=== PATIENT | male | born 1960 | race Caucasian/White ===

== ENCOUNTER 2017-08-11 06:11 | Outpatient (CLI) | payer OTHER ==
[2017-08-11] MEDS ORDERED: IOPAMIDOL-300 50 ML VIAL ONE (06:30)
[2017-08-11] MEDS ORDERED: IOPAMIDOL-300 100 ML VIAL ONE (06:30)
[2017-08-11] MEDS ORDERED: IOPAMIDOL-300 100 ML VIAL IVP ONE (09:52)
[2017-08-11] MEDS ORDERED: IOPAMIDOL-300 50 ML VIAL PO ONE (09:52)
--- NOTE | 2017-08-12 07:05 | CT Report ---
Procedure Date: 08/11/2017 Accession Number: [id number] / [id number] Procedure: CT - Abdomen/Pelvis W/ CPT Code: FULL RESULT: EXAM: CT ABDOMEN AND PELVIS EXAM DATE: 08/11/2017 07:43 AM. CLINICAL HISTORY: Rectal pain with defecation. COMPARISONS: None. TECHNIQUE: Routine helical CT imaging was performed through the abdomen and pelvis. IV contrast: ISOVUE 300 100 mL. Enteric contrast: Positive. Reconstructions: Coronal and sagittal. In accordance with CT protocol optimization, one or more of the following dose reduction techniques were utilized for this exam: automated exposure control, adjustment of mA and/or KV based on patient size, or use of iterative reconstructive technique. FINDINGS: Lung Bases: Lung bases are clear. Heart size upper normal. Liver: Fatty liver. No hepatic lesions. Patent portal vein. Gallbladder/Bile Ducts: Unremarkable. Spleen: Normal. Pancreas: Normal. Adrenal Glands: 16 mm left adrenal nodule is present, indeterminate. Kidneys: Kidneys enhance symmetrically. No hydronephrosis. No nephrolithiasis. No ureteral dilatation or ureteral calculi. Peritoneal Cavity/Bowel: Stomach is mildly to moderately distended and unremarkable. No small bowel wall thickening. No evidence for obstruction. No free air. Small volume of stool in the colon. Diverticula are seen largely in the distal colon. No evidence of diverticulitis. No enlarged retroperitoneal or mesenteric lymph nodes. Surgical clips are seen adjacent to the duodenum, along the retroperitoneum, along the IVC and aorta and along the right renal hilum and along the right iliac artery. The appendix is well visualized and normal. Pelvic Organs: The urinary bladder is mildly distended and unremarkable. Fatty left inguinal hernia. Changes appear to be seen from right orchiectomy. There may be a prosthesis in the right scrotum. No perirectal fluid collections or definitive evidence for fistula. No significant focal rectal or anal thickening noted. No perianal fluid collections. Vasculature: Vascular calcifications. Mesenteric vasculature is patent. No aneurysm. No dissection. Bones: Degenerative changes of the lower thoracic and lumbar spine. Degenerative changes of both hip joints. No acute osseous abnormalities. No osseous lesions. Other: None. IMPRESSION: 1. Colonic diverticulosis. No diverticulitis. No bowel obstruction. No evidence of perianal or perirectal fistula or fluid collection or focal thickening. 2. Normal appendix. 3. No nephrolithiasis. No hydronephrosis. 4. Fatty liver. 5. Retroperitoneal lymph node dissection. Status post right orchiectomy. RADIA
== END 2017-08-11 06:12 | disposition home or self-care (01) ==
LOC: DI 06:11
PROVIDERS: ATTEND Internal Medicine
DX: K57.30 Diverticulosis of large intestine without perforation or abscess without bleeding (principal); K76.0 Fatty (change of) liver, not elsewhere classified; Z90.79 Acquired absence of other genital organ(s)
CPT/HCPCS: 74177; Q9967

== ENCOUNTER 2018-05-23 17:29 | Emergency (ER) | payer OTHER ==
--- NOTE | 2018-05-23 17:40 | ED Physician Documentation ---
History of Present Illness - Stated complaint Stated Complaint: R HAND LAC - Chief complaint Chief Complaint: Laceration - History obtained from History obtained from: Patient - History of Present Illness Timing: Prior to arrival - Additonal information Additional information: Patient is a previously healthy, right-handed 57-year-old male presenting with large laceration to the dorsum of his right hand after excellently tripping near his truck and catching it on a piece of metal. Patient denies fall, striking of head, or other injury. Patient reports mild pain and bleeding, but denies significant change in sensation, strength, range of motion. Tetanus current. No other improving or worsening factors to his symptoms noted. Review of Systems Skin: reports: Laceration (s) Musculoskeletal: reports: Extremity pain PD PAST MEDICAL HISTORY - Past Medical History Psych: Depression - Allergies Allergies/Adverse Reactions: Allergies Allergy/AdvReac Type Severity Reaction Status Date / Time aspirin Allergy Anaphylaxis Verified 05/23/18 17:33 niacin Allergy Anaphylaxis Verified 05/23/18 17:33 Penicillins Allergy Anaphylaxis Verified 05/23/18 17:33 Sulfa (Sulfonamide Allergy Anaphylaxis Verified 05/23/18 17:33 Antibiotics) PD ED PE NORMAL - General General: Alert and oriented X 3, No acute distress, Well developed/nourished - HEENT HEENT: Atraumatic, Moist mucous membranes - Cardiac Cardiac: Strong equal pulses (Cap refill brisk) - Respiratory Respiratory: No respiratory distress - Derm Derm: Normal color, Warm and dry, Other (Approximately 12 cm irregular superficial laceration to dorsum of right hand directly below index finger and extending into webspace of thumb and index finger. No signs of infection, retained foreign body, or other damage to underlying structures.) - Extremities Extremities: No deformity, No tenderness to palpate, Normal ROM s pain - Neuro Neuro: Alert and oriented X 3, No motor deficit, No sensory deficit - Psych Psych: Normal mood, Normal affect Results - Vitals Vitals: Vital Signs - 24 hr 05/23/18 05/23/18 17:33 20:03 Temperature 36.6 C 36.4 C L Heart Rate 72 68 Respiratory 16 14 Rate Blood Pressure 125/74 128/74 O2 Saturation 95 97 Oxygen O2 Source Room air Procedures - Laceration (location) Hand right Length in cm: 12 Wound type: Curved, Irregular Neurovascular status: Sensory intact, Motor intact, Vascular intact Tendon involvement: Tendon intact Anesthesia: LET, Lidocaine 1% with epi Wound Preparation: Irrigated copiously NS Skin layer closure: Nylon, Sutures - enter # (twelve 4-0) Other: Patient tolerated well, No complications, Neurovascular intact, Dressing applied, Tetanus UTD Complexity: Simple PD MEDICAL DECISION MAKING - ED course Complexity details: re-evaluated patient, considered differential, d/w patient, d/w family ED course: Most concerning for superficial laceration that is otherwise uncomplicated. Have low suspicion for dislocation, fracture, muscular skeletal injury at this time, particularly given mechanism and physical exam findings. No signs of retained foreign body, tendon involvement or other underlying damage.No signs of infection. Wound anesthetized, appropriately cleaned, and repaired in ED without issue. Advised patient appropriate wound care, timing of suture removal, other supportive cares, return precautions. Patient voiced understanding and is comfortable with discharge plan. Departure - Departure Disposition: 01 Home, Self Care Clinical Impression: Laceration Condition: Good Instructions: ED Laceration All, ED Laceration Hand Follow-Up: your,doctor [Other] - Within 3 Days Comments: Please keep wounds clean and dry, using running water and soap only to clean. Apply bacitracin or Neosporin 1-2 times daily as needed. Please return to ED, urgent care or your physician in 10-14 days for suture removal. Please return earlier if experience reopening of wound, infection of wound, or other concerns.
[2018-05-23] MEDS: LIDOCAINE-EPINEPH-TETRACAINE 3 ML SYRINGE TOP STA (18:04)
[2018-05-23 20:04] VITALS: BP 128/74
== END 2018-05-23 20:19 | disposition home or self-care (01) ==
LOC: ED 17:29
DX: S61.411A Laceration without foreign body of right hand, initial encounter (principal); W01.118A Fall on same level from slipping, tripping and stumbling with subsequent striking against other sharp object, initial encounter
CPT/HCPCS: 12004; 99282; 99283

== ENCOUNTER 2018-08-09 08:00 | Outpatient (CLI) | payer OTHER ==
[2018-08-09 12:27] LABS: BASOPHILS % (AUTO) 0.6 %; EOSINOPHILS # (AUTO) 0.2 10^3/uL (0.0-0.7); EOSINOPHILS % (AUTO) 2.1 %; HGB - HEMOGLOBIN 15.1 g/dL (14.0-18.0); LYMPHOCYTES # (AUTO) 2.1 10^3/uL (1.5-3.5); LYMPHOCYTES % (AUTO) 29.4 %; MEAN CORPUSCULAR HEMOGLOBIN 30.4 pg (27.0-31.0); MEAN CORPUSCULAR HGB CONC 32.5 g/dL (32.0-36.0); MEAN CORPUSCULAR VOLUME 93.8 fL (80.0-94.0); MEAN PLATELET VOLUME 10.4 fL (7.4-11.4); MONOCYTES # (AUTO) 0.5 10^3/uL (0.0-1.0); MONOCYTES % (AUTO) 6.8 %; NEUTROPHILS # (AUTO) 4.3 10^3/uL (1.5-6.6); PLT - PLATELET COUNT 197 10^3/uL (130-450); RED BLOOD COUNT 4.96 10^6/uL (4.70-6.10); RED CELL DISTRIBUTION WIDTH 14.5 % (12.0-15.0)
[2018-08-09 12:52] LABS: PSA SCREEN (Z12.5) 4.11 ng/mL (0.000-2.000); THYROID STIMULATING HORMONE 3.4 uIU/mL (0.34-5.60)
[2018-08-09 12:55] LABS: ALBUMIN 4.2 g/dL (3.2-5.5); ALBUMIN/GLOBULIN RATIO 1.7 (1.0-2.2); ALKALINE PHOSPHATASE 48 IU/L (42-121); ALT ALANINE AMINOTRANSFERASE 34 IU/L (10-60); AST ASPARTATE AMINOTRANSFERASE 23 IU/L (10-42); BUN - BLOOD UREA NITROGEN 19 mg/dL (6-20); CALCIUM 9.1 mg/dL (8.5-10.3); CARBON DIOXIDE - CO2 25 mmol/L (21-32); CHLORIDE 108 mmol/L (101-111); CHOL/HDL RATIO 5.4 (<5.0); CHOLESTEROL 163 mg/dL; CREATININE 1.1 mg/dL (0.6-1.2); GFR - MDRD 69 (>89); GLUCOSE 97 mg/dL (70-100); HDL CHOLESTEROL 30 mg/dL; SODIUM 141 mmol/L (135-145); TOTAL PROTEIN 6.7 g/dL (6.7-8.2); URIC ACID 9.8 mg/dL (2.6-7.2)
[2018-08-09 13:21] LABS: LDL CHOLESTEROL,DIRECT 68 mg/dL; LDLD/HDL RATIO 2.3 (<3.6)
== END 2018-08-09 23:59 | disposition home or self-care (01) ==
LOC: LAB.N 08:00
PROVIDERS: ATTEND Internal Medicine
DX: I10 Essential (primary) hypertension (principal); Z79.899 Other long term (current) drug therapy; E78.1 Pure hyperglyceridemia; R58 Hemorrhage, not elsewhere classified; Z12.5 Encounter for screening for malignant neoplasm of prostate; D40.10 Neoplasm of uncertain behavior of unspecified testis; M10.9 Gout, unspecified; E55.9 Vitamin D deficiency, unspecified
CPT/HCPCS: 36415; 80053; 80061; 82105; 82306; 82607; 83721; 84153; 84403; 84443; 84550; 84702; 84703; 85025

== ENCOUNTER 2019-01-05 08:00 | Outpatient (CLI) | payer OTHER ==
[2019-01-05 12:50] LABS: BASOPHILS # (AUTO) 0.1 10^3/uL (0.0-0.1); BASOPHILS % (AUTO) 0.6 %; EOSINOPHILS # (AUTO) 0.1 10^3/uL (0.0-0.7); EOSINOPHILS % (AUTO) 1.7 %; HGB - HEMOGLOBIN 14.9 g/dL (14.0-18.0); LYMPHOCYTES # (AUTO) 2.1 10^3/uL (1.5-3.5); LYMPHOCYTES % (AUTO) 25.7 %; MEAN CORPUSCULAR HEMOGLOBIN 31.5 pg (27.0-31.0); MEAN CORPUSCULAR HGB CONC 32.4 g/dL (32.0-36.0); MEAN CORPUSCULAR VOLUME 97.3 fL (80.0-94.0); MEAN PLATELET VOLUME 9.9 fL (7.4-11.4); MONOCYTES # (AUTO) 0.6 10^3/uL (0.0-1.0); MONOCYTES % (AUTO) 7.6 %; NEUTROPHILS # (AUTO) 5.3 10^3/uL (1.5-6.6); NEUTROPHILS % (AUTO) 63.9 %; PLT - PLATELET COUNT 209 10^3/uL (130-450); RED BLOOD COUNT 4.73 10^6/uL (4.70-6.10); RED CELL DISTRIBUTION WIDTH 13.6 % (12.0-15.0); WHITE BLOOD COUNT 8.3 x10^3/uL (4.8-10.8)
[2019-01-05 13:48] LABS: ALBUMIN 4.4 g/dL (3.2-5.5); ALBUMIN/GLOBULIN RATIO 1.8 (1.0-2.2); ALKALINE PHOSPHATASE 48 IU/L (42-121); ALT ALANINE AMINOTRANSFERASE 48 IU/L (10-60); AST ASPARTATE AMINOTRANSFERASE 30 IU/L (10-42); BUN - BLOOD UREA NITROGEN 22 mg/dL (6-20); CALCIUM 9.1 mg/dL (8.5-10.3); CARBON DIOXIDE - CO2 27 mmol/L (21-32); CHLORIDE 106 mmol/L (101-111); CHOL/HDL RATIO 4.9 (<5.0); CHOLESTEROL 177 mg/dL; GFR - MDRD 76 (>89); GLUCOSE 94 mg/dL (70-100); HDL CHOLESTEROL 36 mg/dL; LDL CHOLESTEROL,CALCULATED 67 mg/dL; LDL/HDL RATIO 1.9 (<3.6); SODIUM 142 mmol/L (135-145); TOTAL PROTEIN 6.9 g/dL (6.7-8.2); URIC ACID 9.2 mg/dL (2.6-7.2); VLDL CHOLESTEROL 74 mg/dL
[2019-01-06 13:06] LABS: HEPATITIS C ANTIBODY NON-REACTIVE (NON-REACTIVE)
== END 2019-01-05 23:59 | disposition home or self-care (01) ==
LOC: LAB.N 08:00
PROVIDERS: ATTEND Internal Medicine
DX: Z79.899 Other long term (current) drug therapy (principal); I10 Essential (primary) hypertension; M10.9 Gout, unspecified; R20.0 Anesthesia of skin; E78.1 Pure hyperglyceridemia; Z11.59 Encounter for screening for other viral diseases
CPT/HCPCS: 36415; 80053; 80061; 83721; 84443; 84550; 85025; 86803

== ENCOUNTER 2019-02-12 09:42 | Outpatient (CLI) | payer OTHER | END 2019-02-12 23:59 | disposition home or self-care (01) | LOC: LAB.N 09:42 | PROVIDERS: ATTEND Urology | DX: Z85.47 Personal history of malignant neoplasm of testis (principal); R97.20 Elevated prostate specific antigen [PSA] | CPT/HCPCS: 36415; 82105; 83615; 84153; 84702 ==

== ENCOUNTER 2020-04-14 16:26 | Outpatient (CLI) | payer OTHER ==
--- NOTE | 2020-04-14 17:03 | XRAY Report ---
PROCEDURE: Foot 3 View LT INDICATIONS: LEFT FOOT PAIN TECHNIQUE: 3 views of the foot were acquired. COMPARISON: None. FINDINGS: Oblique fracture of the proximal phalanx of the fourth toe. Diffuse interphalangeal joint degeneratio n. Mild first MTP degenerative joint disease. Lateral forefoot soft tissue swelling. Posterior calcan eal spurring. Soft tissues: No tibiotalar joint effusion. Achilles tendon appears normal. IMPRESSION: Oblique fracture involving the fourth toe proximal phalanx. Reviewed by: Britton Gross MD on 04/14/2020 5:01 PM PST Approved by: Britton Gross MD on 04/14/2020 5:01 PM PST Station ID: [id number]
== END 2020-04-14 16:27 | disposition home or self-care (01) ==
LOC: DI 16:26
PROVIDERS: ATTEND Internal Medicine
DX: M79.672 Pain in left foot (principal); S92.512A Displaced fracture of proximal phalanx of left lesser toe(s), initial encounter for closed fracture; M19.072 Primary osteoarthritis, left ankle and foot

== ENCOUNTER 2021-01-19 09:50 | Outpatient (CLI) | payer OTHER ==
--- NOTE | 2021-01-19 15:24 | XRAY Report ---
PROCEDURE: Hip w/Pelvis 2-3V RT INDICATIONS: RIGHT HIP PAIN TECHNIQUE: AP pelvis with lateral view(s) of the right hip(s). COMPARISON: None. FINDINGS: Bones: No fractures or dislocations. Pelvic ring appears intact. No suspicious bony lesions. Mild bilateral hip osseous hypertrophy. Lower lumbar spine degenerative disc changes. Multiple surgical cl ips noted adjacent to the right margin of the L4 and L5 vertebral bodies. Soft tissues: The visualized bowel gas pattern is normal. No suspicious soft tissue calcifications. IMPRESSION: Mild bilateral hip osteoarthritis. Reviewed by: Puja Norman MD, PhD on 01/19/2021 3:22 PM PST Approved by: Puja Norman MD, PhD on 01/19/2021 3:22 PM PST Station ID: [id number]
== END 2021-01-19 09:51 | disposition home or self-care (01) ==
LOC: DI 09:50
PROVIDERS: ATTEND Internal Medicine
DX: M16.0 Bilateral primary osteoarthritis of hip (principal)

== ENCOUNTER 2021-01-26 09:18 | Outpatient (CLI) | payer OTHER ==
[2021-01-26 13:05] LABS: BASOPHILS % (AUTO) 0.6 %; EOSINOPHILS # (AUTO) 0.1 10^3/uL (0.0-0.7); EOSINOPHILS % (AUTO) 1.9 %; HGB - HEMOGLOBIN 15.1 g/dL (14.0-18.0); LYMPHOCYTES # (AUTO) 1.8 10^3/uL (1.5-3.5); LYMPHOCYTES % (AUTO) 24.3 %; MEAN CORPUSCULAR HEMOGLOBIN 32.5 pg (27.0-31.0); MEAN CORPUSCULAR HGB CONC 33.6 g/dL (32.0-36.0); MEAN CORPUSCULAR VOLUME 96.8 fL (80.0-94.0); MONOCYTES # (AUTO) 0.6 10^3/uL (0.0-1.0); MONOCYTES % (AUTO) 7.6 %; NEUTROPHILS # (AUTO) 4.7 10^3/uL (1.5-6.6); NEUTROPHILS % (AUTO) 65.5 %; PLT - PLATELET COUNT 177 10^3/uL (130-450); RED BLOOD COUNT 4.65 10^6/uL (4.70-6.10); WHITE BLOOD COUNT 7.2 x10^3/uL (4.8-10.8)
[2021-01-26 13:34] LABS: ALBUMIN 4.2 g/dL (3.2-5.5); ALBUMIN/GLOBULIN RATIO 1.8 (1.0-2.2); ALKALINE PHOSPHATASE 45 IU/L (42-121); ALT ALANINE AMINOTRANSFERASE 36 IU/L (10-60); AST ASPARTATE AMINOTRANSFERASE 28 IU/L (10-42); BILIRUBIN,TOTAL 1.3 mg/dL (0.2-1.0); BUN - BLOOD UREA NITROGEN 20 mg/dL (6-20); CALCIUM 9.2 mg/dL (8.5-10.3); CARBON DIOXIDE - CO2 29 mmol/L (21-32); CHLORIDE 104 mmol/L (101-111); CHOL/HDL RATIO 5.3 (<5.0); CHOLESTEROL 163 mg/dL; CK- CREATINE KINASE 346 IU/L (22-269); GFR - MDRD 76 (>89); GLUCOSE 111 mg/dL (70-100); HDL CHOLESTEROL 31 mg/dL; LDL CHOLESTEROL,CALCULATED 78 mg/dL; LDL/HDL RATIO 2.5 (<3.6); POTASSIUM 4.3 mmol/L (3.5-5.0); SODIUM 140 mmol/L (135-145); TOTAL PROTEIN 6.5 g/dL (6.7-8.2); TRIGLYCERIDES 270 mg/dL; URIC ACID 8.6 mg/dL (2.6-7.2); VLDL CHOLESTEROL 54 mg/dL
[2021-01-26 13:39] LABS: ESTIMATED AVERAGE GLUCOSE 111 mg/dL (70-100); HEMOGLOBIN A1c% 5.5 % (4.27-6.07)
[2021-01-26 13:44] LABS: THYROID STIMULATING HORMONE 2.64 uIU/mL (0.34-5.60)
== END 2021-01-26 09:19 | disposition home or self-care (01) ==
LOC: LAB.N 09:18
PROVIDERS: ATTEND Internal Medicine
DX: I10 Essential (primary) hypertension (principal); Z13.6 Encounter for screening for cardiovascular disorders; M19.90 Unspecified osteoarthritis, unspecified site; M10.9 Gout, unspecified; D40.10 Neoplasm of uncertain behavior of unspecified testis; Z12.5 Encounter for screening for malignant neoplasm of prostate
CPT/HCPCS: 36415; 80053; 80061; 81599; 82105; 82550; 82607; 83036; 83721; 84153; 84443; 84550; 84702; 84703; 85025

== ENCOUNTER 2021-01-27 14:27 | Outpatient (CLI) | payer OTHER ==
--- NOTE | 2021-01-27 15:32 | Ultrasound Report ---
PROCEDURE: Carotid Doppler Complete INDICATIONS: FAMILY HX CVA TECHNIQUE: Color and pulse Doppler interrogation was performed of both carotid systems, with image documentation and velocity measurements. COMPARISON: None. FINDINGS: Right side: Brachial blood pressure: 120/65 mm Hg. Common carotid artery peak systolic velocity: 55 cm/sec. Internal carotid artery peak systolic velocity: 66 cm/sec. Internal carotid artery end diastolic velocity: 24 cm/sec. External carotid artery peak systolic velocity: 96 cm/sec. ICA/CCA peak systolic ratio: 1.2 . Garcia scale imaging description: Mild to moderate plaque at the bifurcation Percent internal carotid artery stenosis: Less than 50% . Vertebral artery: Flow direction is antegrade. Left side: Brachial blood pressure: 130/68 mm Hg. Common carotid artery peak systolic velocity: 87 cm/sec. Internal carotid artery peak systolic velocity: 78 cm/sec. Internal carotid artery end diastolic velocity: 25 cm/sec. External carotid artery peak systolic velocity: 82 cm/sec. ICA/CCA peak systolic ratio: 0.9 . Garcia scale imaging description: Mild to moderate plaque at dictation Percent internal carotid artery stenosis: Less than 50% . Vertebral artery: Flow direction is antegrade. IMPRESSION: Less than 50% stenosis of the internal carotid arteries bilaterally. The estimate of stenosis included in the report of the imaging study was calculated using the NASCET method Reviewed by: Leatha Riddle MD on 01/27/2021 3:30 PM PST Approved by: Leatha Riddle MD on 01/27/2021 3:30 PM PST Station ID: [id number]
== END 2021-01-27 14:28 | disposition home or self-care (01) ==
LOC: DI 14:27
PROVIDERS: ATTEND Internal Medicine
DX: Z82.3 Family history of stroke (principal)
CPT/HCPCS: 93880

== ENCOUNTER 2022-06-17 14:57 | Outpatient (CLI) | payer OTHER ==
--- NOTE | 2022-06-17 16:41 | XRAY Report ---
PROCEDURE: Knee 3 View LT INDICATIONS: LEFT KNEE PAIN TECHNIQUE: 3 views of the left knee(s) were acquired. COMPARISON: None. FINDINGS: Bones: No fractures or dislocations. No suspicious bony lesions. Soft tissues: No knee joint effus ion. No suspicious soft tissue calcifications or masses. IMPRESSION: No acute fracture. No osseous lesion. If symptoms and/or clinical suspicion for pathology continue, f urther assessment with repeat plain films, or advanced imaging (e.g., CT, MRI, or bone scan) is recom mended for further assessment. Reviewed by: Steve Key MD on 06/17/2022 4:40 PM PDT Approved by: Steve Key MD on 06/17/2022 4:40 PM PDT Station ID: [id number]
== END 2022-06-17 14:58 | disposition home or self-care (01) ==
LOC: DI 14:57
PROVIDERS: ATTEND Internal Medicine
DX: M25.562 Pain in left knee (principal)

== ENCOUNTER 2022-10-28 16:35 | Outpatient (CLI) | payer OTHER ==
--- NOTE | 2022-10-29 11:49 | MRI Report ---
PROCEDURE: KNEE WO - LT INDICATIONS: KNEE PAIN TECHNIQUE: Noncontrast sagittal PD fast spin echo and T2 fast spin echo with fat saturation, sagittal 3-D gradie nt sequence with fat saturation; coronal T1 spin echo and PD fast spin echo with fat saturation, and axial PD fast spin echo with fat saturation through the knee. COMPARISON: None. FINDINGS: Image quality: Excellent. Menisci: There is linear horizontal high T2 signal intensity traversing the inner, middle, peripheral thirds of the posterior horn medial meniscus, demonstrating inferior articular surface extension. La teral meniscus is intact. Cruciate ligaments: The anterior and posterior cruciate ligaments appear intact. Medial structures: Low-grade partial-thickness tearing of the mid/superior aspect of the medial colla teral ligament. Visualized portions of the pes anserinus tendons appear normal. No abnormal bursal f luid. Lateral structures: The lateral collateral ligament demonstrates mild internal T2 signal elevation a t the femoral origin. The long and short heads of the biceps femoris tendon appear intact. The popli teus tendon appears normal. Iliotibial band appears normal. Anterior structures: The quadriceps and patellar tendons appear intact. Patellar alignment is trina l. No femoral trochlear dysplasia or ventral trochlear prominence. No edema in the infrapatellar fa t pad. Bones and cartilage: No bone marrow contusions or fractures. Moderate degree cartilage loss overlies the lateral patellar facet inferiorly. Joint space: There is a small knee joint effusion and a smal l Bajwa's cyst. Normal appearing synovial plicae are incidentally noted. IMPRESSION: 1. Horizontal tearing of the medial meniscus. 2. Patellofemoral compartment articular cartilage loss. 3. Partial-thickness tears of the medial and lateral collateral ligaments. 4. Knee joint effusion and Bajwa's cyst. Reviewed by: Steve Key MD on 10/29/2022 11:47 AM PDT Approved by: Stvee Key MD on 10/29/2022 11:47 AM PDT Station ID: [id number]
--- NOTE | 2022-10-29 12:54 | XRAY Report ---
PROCEDURE: Hand 3 View LT INDICATIONS: HAND PAIN, KNEE PAIN TECHNIQUE: 3 views of the hand(s) acquired. COMPARISON: None. FINDINGS: Bones: No fractures or dislocations. Mild degenerative changes most pronounced at the first CMC join t. No suspicious bony lesions. Soft tissues: No suspicious soft tissue calcifications or masses. IMPRESSION: Mild degenerative changes most pronounced at the first CMC joint. Reviewed by: Lex Lin MD on 10/29/2022 12:53 PM PDT Approved by: Lex Lin MD on 10/29/2022 12:53 PM PDT Station ID: [id number]
== END 2022-10-28 16:36 | disposition home or self-care (01) ==
LOC: DI 16:35
PROVIDERS: ATTEND Internal Medicine
DX: S83.242A Other tear of medial meniscus, current injury, left knee, initial encounter (principal); S83.412A Sprain of medial collateral ligament of left knee, initial encounter; S83.422A Sprain of lateral collateral ligament of left knee, initial encounter; M25.462 Effusion, left knee; M71.22 Synovial cyst of popliteal space [Baker], left knee; M18.12 Unilateral primary osteoarthritis of first carpometacarpal joint, left hand

== ENCOUNTER 2023-05-30 13:34 | Outpatient (CLI) | payer OTHER ==
[2023-05-30 18:47] LABS: PSA TOTAL 10.705 ng/mL (0.000-2.000)
[2023-05-30 21:26] LABS: ESTIMATED AVERAGE GLUCOSE 111 mg/dL (70-100); HEMOGLOBIN A1c% 5.5 % (4.27-6.07)
== END 2023-05-30 13:35 | disposition home or self-care (01) ==
LOC: LAB.N 13:34
PROVIDERS: ATTEND Internal Medicine
DX: I71.40 Abdominal aortic aneurysm, without rupture, unspecified (principal); R73.9 Hyperglycemia, unspecified; D49.59 Neoplasm of unspecified behavior of other genitourinary organ; L40.9 Psoriasis, unspecified; J45.909 Unspecified asthma, uncomplicated; B35.3 Tinea pedis; R06.00 Dyspnea, unspecified
CPT/HCPCS: 36415; 82105; 83036; 84153; 84154; 84702

== ENCOUNTER 2023-06-06 09:17 | Outpatient (CLI) | payer OTHER ==
--- NOTE | 2023-06-06 12:31 | CT Report ---
PROCEDURE: Chest WO INDICATIONS: DYSPNEA, AAA TECHNIQUE: A CT scan of the chest was performed. Intravenous contrast media was not administered. Images were re corded and evaluated at appropriate window settings. Reformats: axial MIP of the chest, coronal and s agittal. For radiation dose reduction, the following was used: automated exposure control, adjustment of mA and/or kV according to patient size. COMPARISON: None. FINDINGS: Image quality: Diagnostic. Chest wall and lower neck: No thyroid nodule which requires sonographic follow up. No axillary or sup raclavicular adenopathy by size. Lungs and pleura: No consolidation. No pleural effusions. No pneumothorax. No suspicious pulmonary n odules which require follow up. Mediastinum: Heart size is normal. No pericardial effusion. No large vessel abnormality. No aneurysma l dilatation of the thoracic aorta. Main pulmonary artery measures within normal limits for size. No mediastinal adenopathy by size criteria. Atherosclerosis of the coronary arteries. Bones: No aggressive osseous abnormality. No acute compression fracture. Multilevel spondylosis. Upper Abdomen: Small 1.2 cm low-attenuation nodule in the left adrenal gland measuring approximately 9 Hounsfield units. Findings are compatible with an adrenal adenoma. No further follow-up required. IMPRESSION: CT chest without acute cardiopulmonary abnormalities. Atherosclerotic vascular calcifications. Small 1.2 cm low-attenuation left adrenal nodule most consistent with a benign adrenal adenoma. No suspicious pulmonary nodules or mass lesions. Reviewed by: Kaden Altamirano MD on 06/06/2023 12:30 PM PDT Approved by: Kaden Altamirano MD on 06/06/2023 12:30 PM PDT Station ID: [id number]
--- NOTE | 2023-06-06 16:32 | Ultrasound Report ---
PROCEDURE: Renal Ltd (Retroperitoneal Ltd INDICATIONS: DYSPNEA, AAA TECHNIQUE: Real time scanning was performed of the aorta and iliac arteries, with image documentatio n. COMPARISON: CT abdomen and pelvis dated 08/11/2017. FINDINGS: Aorta: Proximal aortic diameter measures 2.2 x 2.9 cm. Mid-aorta measures 2.3 x 2.3 cm. Distal a ortic diameter is 2.7 x 2.8 cm. Iliac arteries: Right common iliac artery measures 1.2 x 1.4 cm. Left common iliac artery measures 1.0 x 1.0 cm. IMPRESSION: Ectatic abdominal aorta. Recommend follow-up imaging in 5 years. Recommended intervals for follow-up imaging of ectatic aortas and abdominal aortic aneurysms, per ACR consensus guidelines: 2.5-2.9 cm: 5 years 3.0-3.4 cm: 3 years 3.5-3.9 cm: 2 years 4.0-4.4 cm: 1 year 4.5-4.9 cm: 6 months + endovascular referral 5.0-5.5 cm: 3-6 months + endovascular referral Reviewed by: Kaden Altamirano MD on 06/06/2023 4:31 PM PDT Approved by: Kaden Altamirano MD on 06/06/2023 4:31 PM PDT Station ID: [id number]
== END 2023-06-06 09:18 | disposition home or self-care (01) ==
LOC: DI 09:17
PROVIDERS: ATTEND Internal Medicine
DX: R06.00 Dyspnea, unspecified (principal); I25.10 Atherosclerotic heart disease of native coronary artery without angina pectoris; E27.8 Other specified disorders of adrenal gland; I71.40 Abdominal aortic aneurysm, without rupture, unspecified

== ENCOUNTER 2023-08-02 16:19 | Outpatient (CLI) | payer OTHER ==
--- NOTE | 2023-08-02 17:25 | XRAY Report ---
PROCEDURE: Wrist 3+V RT INDICATIONS: RIGHT WRIST PAIN TECHNIQUE: 3 views of the wrist were acquired. COMPARISON: None. FINDINGS: Bones: No fractures or dislocations. No suspicious bony lesions. Soft tissues: No suspicious soft tissue calcifications or masses. IMPRESSION: No acute bony abnormality. Reviewed by: Kike Sprague MD on 08/02/2023 5:23 PM PDT Approved by: Kike Sprague MD on 08/02/2023 5:23 PM PDT Station ID: [id number]
== END 2023-08-02 16:20 | disposition home or self-care (01) ==
LOC: DI 16:19
PROVIDERS: ATTEND Internal Medicine
DX: M25.531 Pain in right wrist (principal)